=== PATIENT | male | born 1960 | race Caucasian/White ===

== ENCOUNTER → 2019-11-16 | Day surgery (SDC) | payer MEDICAID ==
[~2019-11-16] MED LIST: Ketamine 200 MG/20 ML MDV IV ONE; Lactated Ringers 1,000 ML IV SCH; Midazolam 1 MG/ML 2 ML SDV IV ONE; Propofol 200 MG/20 ML SDV IV ONE
--- NOTE | 2019-11-16 18:52 | OR ---
DATE OF OPERATION: 11/16/2019 PREOPERATIVE DIAGNOSIS: SCREENING COLONOSCOPY. POSTOPERATIVE DIAGNOSIS: SCREENING COLONOSCOPY. SURGEON: Minh Barnes MD PROCEDURE: FULL-LENGTH COLONOSCOPY WITH SNARE POLYPECTOMY X2. ANESTHESIA: MAC. COMPLICATIONS: None. SPECIMEN: Two large tubular adenomas, sigmoid colon. FINDINGS: 1. Full-length colonoscopy. 2. Mild krishnan diverticulosis. 3. Tubular adenomas x2, sigmoid and rectosigmoid junction, each approximately 8 to 10 mm in size. RECOMMENDATIONS: Followup colonoscopy in 3 years pending path report. INDICATIONS: The patient was seen by his primary provider for a physical. Screening for colon cancer in the form of a colonoscopy was recommended. DESCRIPTION OF PROCEDURE: The patient was prepped and draped, placed in the left lateral decubitus position. A lubricated Olympus colonoscope was inserted and easily advanced to the cecum. Direct visualization of the ileocecal valve and appendiceal orifice was accomplished. The bowel prep was adequate. Upon withdrawal of the scope, the patient's cecum, ascending, transverse, and descending colons were completely unremarkable other than the patient does have very mild krishnan diverticulosis, just a few scattered throughout the entire length of the colon. At about approximately 55 cm in the sigmoid colon, the patient had a large stalk tubular adenoma easily removed with a snare, suctioned into polyp trap #1. Second large tubular adenoma found at approximately 30 cm near the rectosigmoid junction also removed with a snare and suctioned into polyp trap #2 without problem. The rest of the rectosigmoid junction and rectal vault appeared benign. Retroflexion showed no perianal lesions. Air was suctioned, scope removed without complication. The patient is stable in the recovery room. JOSE M/NURY /[id number]
== END ==
LOC: CC.SDS 08:09
PROVIDERS: ATTEND Family Medicine
DX: Z12.11 Encounter for screening for malignant neoplasm of colon (principal); D12.7 Benign neoplasm of rectosigmoid junction; D12.5 Benign neoplasm of sigmoid colon; K57.30 Diverticulosis of large intestine without perforation or abscess without bleeding; R53.1 Weakness; M21.379 Foot drop, unspecified foot; R32 Unspecified urinary incontinence; F17.210 Nicotine dependence, cigarettes, uncomplicated
CPT/HCPCS: 45385; J2250; J2704; J7120

== ENCOUNTER → 2022-11-19 | Day surgery (SDC) | payer MEDICAID ==
[~2022-11-19] MED LIST changes: -Ketamine 200 MG/20 ML MDV IV ONE; +Ketamine 200 MG/20 ML MDV ONE; -Midazolam 1 MG/ML 2 ML SDV IV ONE; +Midazolam 1 MG/ML 2 ML SDV ONE; -Propofol 200 MG/20 ML SDV IV ONE; +Propofol 200 MG/20 ML SDV ONE; +fentaNYL 50 MCG/ML SDV ONE
== END ==
LOC: CC.SDS 07:11
PROVIDERS: ATTEND Family Medicine
DX: Z12.11 Encounter for screening for malignant neoplasm of colon (principal); K57.30 Diverticulosis of large intestine without perforation or abscess without bleeding; I73.9 Peripheral vascular disease, unspecified; F17.210 Nicotine dependence, cigarettes, uncomplicated; Z86.010 Personal history of colon polyps; Z79.82 Long term (current) use of aspirin; Z79.899 Other long term (current) drug therapy
CPT/HCPCS: J7120